=== PATIENT | female | born 1945 | race Caucasian/White ===

== ENCOUNTER 2020-02-02 06:08 | Observation (INO) | payer OTHER ==
[2020-01-30 10:57] LABS: ABSOLUTE BASOPHILS 0.1 thou/uL (0.0-0.2); ABSOLUTE LYMPHOCYTES 1.7 thou/uL (0.8-5.3); ABSOLUTE MONOCYTES 0.7 thou/uL (0.0-1.2); ABSOLUTE NEUTROPHILS 10.6 thou/uL (1.6-8.1); BASOPHILS 0.7 %; EOSINOPHILS 0.3 %; HEMATOCRIT 40.5 % (37.0-47.0); HEMOGLOBIN 13.2 gm/dL (12.0-15.0); LYMPHOCYTES 12.8 %; MCHC 32.6 g/dL (28.0-37.0); MONOCYTES 5.7 %; MPV 8.7 fl. (7.2-11.1); NUCLEATED RBCS 0 /100WBC; PLATELET COUNT* 448 thou/uL (150-400); POLYS 80.5 %; RBC 4.88 mil/uL (4.20-5.00); RDW-CV 14.5 % (10.5-14.5); WBC 13.2 thou/uL (4.0-11.0)
[2020-01-30 11:08] LABS: PROTIME 10.6 Seconds (9.20-11.50)
[2020-01-30 11:15] LABS: ALBUMIN 3.4 g/dL (3.4-5.0); CALCIUM 9.4 mg/dL (8.5-10.1); CREATININE 0.8 mg/dL (0.6-1.3); TOTAL BILIRUBIN 0.4 mg/dL (<0.1-1.0); TOTAL PROTEIN 7.8 g/dL (6.4-8.2)
[2020-01-30 12:29] LABS: ESR (SEDRATE) 42 mm/hr (0-30)
--- NOTE | 2020-01-30 16:28 | EKG ---
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 [employer]: : 1945 Requested By: Miguel Angel Barnett Order Number: [id number] Elizabeth MD: Skyler Cartagena Measurements Intervals [place] Rate: 106 P: 48 NE: 148 QRS: -31 QRSD: 122 T: 89 QT: 358 QTc: 476 Interpretive Statements Sinus tachycardia Left bundle branch block No previous ECG available for comparison Electronically Signed On 01-30-2020 16:26:23 CDT by Skyler Cartagena [email or web address] <ELECTRONICALLY SIGNED> By: Skyler Cartagena MD, [facility] 01/30/20 1626 1040 Skyler Cartagena MD, FACC /EPI
[~2020-02-02] VITALS: Ht 157.5 cm; Wt 87.1 kg
[~2020-02-02 06:08] MED LIST: FOSAMAX 70 MG T70 MG PO; METFORMIN HCL500 M3 PO; OMEPRAZOLE40 MG PO; PRAMIPEXOLE D0.75 MG PO; SIMVASTATIN40 MG PO; TOPROL XL100 MG PO
--- NOTE | 2020-02-02 11:15 | OP ---
[address] [place] [address] OPERATIVE REPORT Name: KYLAH SORIA Room: [address] Annie M.RKenia#: [id number] Admission: 02/02/20 Attend Phys: Javier Marquez Discharge: Date of : 49 Report #: [id number] THIS REPORT FOR: //name// cc: Ladonna Andersen MD, Kelly A. MD ~ THIS REPORT FOR: //name// CC: Ladonna Alvarez DICTATED BY: Dewey Hurt DO DATE OF SERVICE: 02/02/2020 PREOPERATIVE DIAGNOSIS: Right knee degenerative joint disease. POSTOPERATIVE DIAGNOSIS: Right knee degenerative joint disease. PROCEDURE PERFORMED: Right total knee arthroplasty utilizing the following Trish Persona total knee components. 1. A size 6 cruciate retained femoral component. 2. A size E tibial baseplate. 3. A size 12 mm medial congruent polyethylene spacer. 4. A 29 mm all poly patella. SURGEON: Miguel Angel frank DO ASSISTANTS: Dewey Hurt DO and Aubrey Bailey DO ANESTHESIA: General. ANTIBIOTICS: 2 grams Ancef IV preoperatively. ESTIMATED BLOOD LOSS: 100 mL. TOURNIQUET 48 minutes at 250 mmHg. SPECIMENS: None. DRAINS: None. COMPLICATIONS: None. DISPOSITION: Stable to PACU. INDICATIONS: The patient is a pleasant 74-year-old female who has been seen and [address] [place] [address] OPERATIVE REPORT Name: KYLAH SORIA Room: [address] M.R.#: [id number] Admission: 02/02/20 Attend Phys: Javier Marquez Discharge: Date of : 49 Report #: [id number] examined in the outpatient orthopedic clinic for her right knee. She has had right knee pain for several years now. Radiographs demonstrated advanced degenerative joint disease with joint space narrowing, osteophytic lipping and subchondral sclerosis. There was noted to be a correctable valgus deformity to the knee. She had a previous left total knee done many years ago at an outside facility and has done well with this. Right total knee arthroplasty was recommended for the patient. The risks, benefits, alternatives and complications were discussed in detail with the patient and she wished to proceed with the procedure. INTRAOPERATIVE FINDINGS: Upon inspection of the knee intraoperatively, there was noted to be eburnation of the bone edges. There was complete cartilage loss in all 3 compartments. There was a correctable valgus deformity. There were multiple periarticular osteophytes. DESCRIPTION OF PROCEDURE: The patient was seen and examined in the preoperative holding area. The correct upper extremity was then marked. Written consent was obtained for the procedure. The patient was transferred to the operating room and placed supine on the operating table. She was given the benefit of general anesthesia. A well-padded tourniquet was placed to the right thigh. Right lower extremity was prepped and draped in the usual sterile fashion. Timeout was performed to verify the correct patient, procedure and operative extremity and all were in agreement. The leg was then exsanguinated with gravity and the tourniquet was inflated to 250 mmHg. Procedure was then began with a standard midline incision. Sharp dissection was carried down to the level of the capsule. A medial parapatellar arthrotomy was then made with a new knife. A medial periosteal sleeve was developed off the tibia. The anterior horns of medial and lateral menisci were then excised. The patella was everted and the patellar fat pad was excised. The femur was drilled and the intramedullary femoral guide was then placed and pinned into position at 5 degrees of valgus. A distal femur cut was performed in standard fashion. The cutting block was removed and all excess bone was removed. The femur was then sized using the AP sizer. This was noted to be a size 6 femur. This was drilled into 3 degrees of external rotation based off the posterior condylar axis. The size 6, 4-in-1 cutting block was then inserted and pinned into position. The anterior, posterior and chamfer cuts were then performed in standard fashion. The cutting block and all excess bone was removed. Attention was then turned to the tibia. Extramedullary tibial guide was placed in appropriate position. This was measured to be a 2 mm off of the medial side and pinned into position. The tibial cut was then made in the standard fashion. Care was taken to avoid all ligamentous structures. The excess tibia was removed and the remainder of the medial and lateral menisci were excised at that time. The knee was brought into extension and was noted be equally tight in both flexion and extension. The decision was made to take an extra 2 mm cut off of the tibia. The tibial cut block was then placed back on the tibia measuring an extra 2 mm cut. This was cut in the standard fashion. All excess bone removed. The trial tibial [address] [address] OPERATIVE REPORT Name: KYLAH SORIA Room: [address]#: [id number] Admission: 02/02/20 Attend Phys: Javier Marquez Discharge: Date of : 49 Report #: [id number] baseplate was then placed. This was noted to be a size E tibial baseplate. This was pinned into position. The trial femur was inserted and a trial 10 mm polyethylene spacer. The knee was taken through range of motion and noted to have excellent range of motion and stability throughout range of motion. The patella was then cut in a freehand fashion using a wide saw blade. This was measured to a size 29 patella. The patellar pegs were then drilled. The trial patella and femur were removed. The tibia was then reamed and broached in the standard fashion. Tibial trial baseplate was removed. The knee was thoroughly irrigated with pulsatile lavage. Cement was mixed on the back table in standard fashion. The final components were cemented into position. All excess cement was removed. The knee was held in extension with compression to allow the cement to harden. The knee was then trialled with a size 12 mm spacer, which was noted to have excellent stability in all planes as well as full range of motion. The trial poly was removed and the knee was thoroughly irrigated. All excess cement was removed. The final 12 mm medial congruent polyethylene component was then inserted. The tourniquet was deflated. There was minimal bleeding. Hemostasis was achieved with electrocautery. The posterior capsule and periosteum was then injected with 60 mL of the orthopedic cocktail. The capsule was then closed with #1 Vicryl in an interrupted [id number] fashion. 2-0 Vicryl was used subcutaneously followed by running 3-0 Stratafix on the skin. The skin glue was applied. Sterile dressing was applied. The patient was then awakened from anesthesia and transferred to PACU in stable condition. The patient tolerated the procedure well. There were no complications. <ELECTRONICALLY SIGNED> By: Ciro Lovell DO 02/02/20 1115 [id number] Angel Frank DO /nt
--- NOTE | 2020-02-02 11:27 | NUR ---
PT A&OX4 VSS. PT ARRIVES TO UNIT ON CART WITH CONTINUOUS OXYGEN SAT MONITORING. PT ASSISTED TO USE BEDPAN UPON ARRIVAL. BEDSIDE REPORT W/CORY VITAL. POLAR ICE TO R KNEE. PT RESTS IN BED W/CALL LIGHT IN REACH. WILL CONTIUE TO MONITOR
--- NOTE | 2020-02-02 19:55 | NUR ---
PT A&OX4 VSS. IV TO LFA SALINE LOCKED, IV ABX. 2-3L O2, CONTINUOUS SAT MONITORING IN PLACE. CONTINENT OF B/B. PT UP TO RECLINER ASSIST X1 W/WALKER AND GAIT BELT. PT TO BSC WELL. CARB CONTROLLED DIET. PO PRN PAIN MEDS ADMINISTERED. PT RESTING IN RECLINER WITH POLAR PACK ON R KNEE. FEET ELEVATED. CALL LIGHT IN REACH. WILL CONTINUE TO MONITOR.
[2020-02-02 21:00] VITALS: BP 131/79
[2020-02-03] VITALS: BP 134/74
[2020-02-03 04:00] VITALS: BP 130/75
[2020-02-03 05:02] LABS: HEMATOCRIT 34.2 % (37.0-47.0); HEMOGLOBIN 11.1 gm/dL (12.0-15.0)
--- NOTE | 2020-02-03 05:44 | NUR ---
PATIENT UP TO COMMODE WITH ASSISTANCE. ALERT AND ORIENTED. ON ROOM AIR. POLAR PACK AND PULSE OX MONITORING. PAIN WELL CONTROLLED. PLAN TO WORK WITH PT/OT. RECEIVED ALL MEDS SCHEDULED.
[2020-02-03 07:20] VITALS: BP 131/93
[2020-02-03] MEDS ORDERED: SENOKOT-S TABL1 EACH PO (11:01)
[2020-02-03] MEDS ORDERED: PERCOCET PO (11:01)
[2020-02-03] MEDS ORDERED: ELIQUIS5 MG PO (11:01)
[2020-02-03 11:57] VITALS: BP 131/93
--- NOTE | 2020-02-03 12:31 | NUR ---
DC ORDERS FOR HH RECEIVED. REFERRAL SENT TO [facility] AND SPECIAL[facility]. SPECIALIZED DOES NOT ACCEPT [facility]. WILL CONTINUE TO FOLLOW AND AWAIT ACCEPTANCE
--- NOTE | 2020-02-03 12:47 | NUR ---
PATIENT IS BEING DISCHARGED HOME WITH HOME HEALTH. I DID REMOVE HER IV WITH [facility] INTACT. EXPLAINED ALL DISCHARGE INSTRUCTIONS TO PATIENT AND WENT OVER ALL MEDICATIONS TO TAKE AT HOME. EDUCATION HANDOUTS GIVEN TO PATIENT FOR NEW MEDICATIONS. ALL PERSONAL BELONGINGS BAGGED UP AND READY TO GO.
--- NOTE | 2020-02-03 12:56 | NUR ---
PT ACCEPTED BY [facility] FOR HH. PT HAS A WALKER AND CPM AT HOME. DOES NOT HAVE ANY OTHER DME NEEDS
--- NOTE | 2020-02-03 14:08 | NUR ---
Patient discharged home via wheelchair accompanied by staff to private owned vehicle. Her came to pick her up. all personal belongings were taken with patient. She does have her prescriptions and all discharge instructions with her.
== END 2020-02-03 14:10 | disposition home health service (06) ==
LOC: M.TBA 06:08 → M.3W 06:08 → M.PRE 09:35 → M.3W 11:03 → M.PRE 11:14 → M.3W 02-03 14:10
PROVIDERS: Orthopaedic Surgery; ADMIT Internal Medicine
DX: M17.11 Unilateral primary osteoarthritis, right knee (principal); Z03.818 Encounter for observation for suspected exposure to other biological agents ruled out; E11.9 Type 2 diabetes mellitus without complications; I10 Essential (primary) hypertension; K21.9 Gastro-esophageal reflux disease without esophagitis; E78.5 Hyperlipidemia, unspecified